=== PATIENT | male | born 1965 | race Caucasian/White ===

== ENCOUNTER 2025-03-01 11:58 | Day surgery (SDC) | payer BC ==
[~2025-03-01] VITALS: Ht 182.9 cm; Wt 85.9 kg
--- NOTE | ~2025-03-01 | OR ---
[facility] [address], [place] [address] Draft DATE OF OPERATION: 03/01/2025 SURGEON: Leon Gomez MD PREOPERATIVE DIAGNOSIS: History of multiple polyps in 2023 (nine). POSTOPERATIVE DIAGNOSIS: Multiple polyps (seven). PROCEDURE: Total colonoscopy to cecum with cold snare polypectomy x3 and cold morcellation polypectomy x4. ANESTHESIA: Intravenous sedation; fentanyl 100 mcg and Versed 10 mg. INDICATION: This 59-year-old white man is a patient of DELL Paz and underwent colonoscopy in 2023 finding nine polyps including mostly adenomatous polyps. On the basis of the numerous polyps, I have recommended short interval repeat colonoscopy at this time. The risk of bleeding, infection, and perforation were reviewed with him. He understands and wished to proceed. FINDINGS: The prep was good. Complete colonoscopy was undertaken to the cecum with full intubation to the cecum. He had seven polyps in total, two in the right, one at the hepatic flexure, two in the left colon and two in the sigmoid. All were excised completely. In aggregate, four were excised with cold morcellation technique and three with cold snare technique. DESCRIPTION OF PROCEDURE: The patient was brought to the endoscopy suite and placed in the lateral decubitus position, given intravenous sedation to the point of slurred speech and nystagmus. Digital rectal examination was normal. Olympus video colonoscope was passed in the rectum and manipulated throughout the colon ultimately intubating the cecum itself. The ileocecal valve and appendiceal orifice were normal. Scope was withdrawn from that point. In the mid ascending colon, there were two small polyps, both excised with cold morcellation technique. Another such PATIENT NAME: ALAINA MUJICA OPERATIVE REPORT DATE OF : 61 REPORT #: [id number] PHYSICIAN: LEON GOMEZ MD PCP: KIEL COUGHLIN REPORT IS CONFIDENTIAL AND NOT TO BE RELEASED WITHOUT AUTHORIZATION [facility] [address], [place] [address] Draft polyp was noted at the hepatic flexure, which was excised with cold snare technique. Further withdrawal showed two small polyps at the mid descending colon, both excised with cold morcellation technique and two others at the sigmoid, excised with cold snare technique. Retroflexed view of the rectum was normal. Scope was removed and the patient was taken to the recovery room in good condition. CONCLUDING DIAGNOSIS: Multiple polyps ( ). PLAN: Recommend repeat colonoscopy in 2 to 3 years given the number of polyps. We will review the pathology report. We will inform a decision for interval for colonoscopy as well. He will return to the ongoing care of ok Paz. MD ROSA Kang/JOANN /[id number] cc: DELL Paz Copies: ~ PATIENT NAME: ALAINA MUJICA OPERATIVE REPORT DATE OF : 61 REPORT #: [id number] PHYSICIAN: LEON GOMEZ MD PCP: KIEL COUGHLIN REPORT IS CONFIDENTIAL AND NOT TO BE RELEASED WITHOUT AUTHORIZATION
[~2025-03-01 11:58] MED LIST: IBLOOD GLUCOSE TEST STRIP 1 EA TEST VI PRN; LACTATED RINGER'S 1,000 ML IV SCH; LIDOCAINE HCL 1% 5 ML SDV INJ ONE; MIDAZOLAM HCL 5 MG/5 ML VIAL IV PRN; fentaNYL citrate 100 MCG/2 ML VIAL IV PRN
[2025-03-01 12:18] VITALS: BP 176/91
[2025-03-01] MEDS ORDERED: fentaNYL citrate 100 MCG/2 ML VIAL ONE (13:46)
[2025-03-01] MEDS ORDERED: MIDAZOLAM HCL 5 MG/5 ML VIAL ONE (13:47)
--- NOTE | 2025-03-01 14:54 | NUR ---
03/01/25 1454 Sierra Ojeda OXYGEN SATURATION REMAINS 97% ON 2L VIA NC. OXYGEN IS DISCONTINUED.
[2025-03-01 15:16] VITALS: BP 140/86
--- NOTE | 2025-03-03 15:52 | PATH ---
[facility] [address] [place], [place] [address] Signed SPECIMEN(S): A DESCENDING POLYPS SPECIMEN(S): B ASCENDING POLYPS SPECIMEN(S): C HEPATIC FLEXURE POLYP SPECIMEN(S): D SIGMOID POLYPS SPECIMEN SOURCE: A. DESCENDING POLYPS B. ASCENDING POLYPS C. HEPATIC FLEXURE POLYP D. SIGMOID POLYPS CLINICAL HISTORY: History of colon polyps-April 2024, (tubular adenoma), multiple colon polyps FINAL PATHOLOGIC DIAGNOSIS: A. Descending polyps: - Tubular adenoma (two fragments). B. Ascending polyps: - Tubular adenoma (three fragments). C. Hepatic flexure polyp: - Tubular adenoma (one fragment). D. Sigmoid polyps: - Tubular adenoma (multiple fragments). JVR:smn MICROSCOPIC EXAMINATION: Histologic sections of all submitted blocks are examined by light microscopy. These findings, together with the gross examination, support the pathologic diagnosis. GROSS DESCRIPTION: A. The specimen, labeled and designated "Franklyn, descending polyps," is received in formalin and consists of four pastor soft tissue fragments, ranging from 0.1-0.3 cm. Entirely submitted in (A1). B. The specimen, labeled and designated "Franklyn, ascending polyps," is received in formalin and consists of four pastor soft tissue fragments, ranging from 0.2-0.7 cm. Entirely submitted in (B1). C. The specimen, labeled and designated "Franklyn, hepatic flexure polyp," is received in formalin and consists of one pastor soft tissue fragment, 0.4 cm. Entirely submitted in (C1). D. The specimen, labeled and designated "Franklyn, sigmoid polyp," is received PATIENT NAME: ALAINA MUJICA PATHOLOGY DATE OF : 61 REPORT #: [id number] PHYSICIAN: BRISA WILSON PCP: KIEL COUGHLIN REPORT IS CONFIDENTIAL AND NOT TO BE RELEASED WITHOUT AUTHORIZATION [facility] [address], [place] [address] Signed in formalin and consists of four pastor soft tissue fragments, ranging from 0.2-0.5 cm. Entirely submitted in (D1). VB (under the direct supervision of a pathologist) The Gross Description was prepared using a voice recognition system. The report was reviewed for accuracy; however, sound-alike word errors, addition and/or deletions may occur. If there is any question about this report, please contact Client Services. PERFORMING LABORATORY: Technical component was performed by [facility], [address] [place] [address] (CLIA# [id number]). Professional interpretation was performed by [facility], [address] [place] [id number] (CLIA#: [id number]). Diagnostician: Lui Lorenzo MD Pathologist Electronically Signed 03/03/2025 Copies: ~ PATIENT NAME: ALAINA MUJICA PATHOLOGY DATE OF : 61 REPORT #: [id number] PHYSICIAN: BRISA WILSON PCP: KIEL COUGHLIN REPORT IS CONFIDENTIAL AND NOT TO BE RELEASED WITHOUT AUTHORIZATION
== END 2025-03-01 15:26 | disposition home or self-care (01) ==
LOC: DS 11:58
PROVIDERS: ATTEND Surgery
PROC: 0DBN8ZZ Excision of Sigmoid Colon, Via Natural or Artificial Opening Endoscopic (ICD-10-PCS; 2025-03-01)
PROC: 0DBL8ZZ Excision of Transverse Colon, Via Natural or Artificial Opening Endoscopic (ICD-10-PCS; 2025-03-01)
PROC: 0DBM8ZX Excision of Descending Colon, Via Natural or Artificial Opening Endoscopic, Diagnostic (ICD-10-PCS; principal; 2025-03-01 13:00)
DX: D12.2 Benign neoplasm of ascending colon (principal); D12.3 Benign neoplasm of transverse colon; D12.4 Benign neoplasm of descending colon; D12.5 Benign neoplasm of sigmoid colon; F17.200 Nicotine dependence, unspecified, uncomplicated
CPT/HCPCS: 99153; G0500; J2250; J3010; J7121